=== PATIENT | male | born 2000 | race Caucasian/White ===

== ENCOUNTER 2021-10-12 23:38 | Emergency (ER) | payer OTHER, SELFPAY ==
[2021-10-12 23:44] VITALS: BP 141/61; PULSE 74; RESP 18; TEMP 36.5; O2SAT 100
[2021-10-13 00:02] LABS: Abs Immature Grans 0.05 10^3/uL (0.0-0.06); Absolute Basophil Count 0.06 10^3/uL (0.0-0.2); Absolute Eosinophil Count 0.08 10^3/uL (0.0-0.7); Absolute Lymphocyte Count 0.71 10^3/uL (1.2-3.4); Absolute Neutrophil Count 13.46 10^3/uL (1.2-6.7); Basophils % 0.4; Eosinophils % 0.5; HGB 16.3 g/dL (13.5-17.5); Immature Grans % 0.3; Lymphocytes % 4.6; MCH 29.5 pg (27.0-33.0); MPV 10.8 fL (8.0-11.0); Monocytes % 6.6; Neutrophils % 87.6; Nucleated RBC 0 %; Platelet Count 204 10^3/uL (130-400); RBC 5.52 10^6/uL (4.36-5.78); RDW 12.6 % (11.8-14.1); RDW-SD 39.9 fL; WBC 15.36 10^3/uL (4.4-10.8)
[2021-10-13 00:03] LABS: Absolute Monocyte Count 1.01 10^3/uL (0.1-0.8)
[2021-10-13] MEDS: Ondansetron 4 MG/2 ML VIAL IVP (00:06)
[2021-10-13] MEDS: Normal Saline 1,000 ML 1000 ML IV ×2 (00:06→00:47)
--- NOTE | 2021-10-13 00:08 | ED.GENADUL_ITS ---
Discharge Plan Disposition Patient Disposition: HOME Condition: Improving Discharge Details Clinical Impression: Vomiting ED Provider: Josh Wallace Discharge Instructions Instructions: Gastroenteritis (ED) Additional Instructions: Please stay hydrated attempt to use Gatorade or Pedialyte at home. Please return to the emergency department for persistent vomiting abdominal pain high fevers or other abnormal symptomatology. Medical Decision Making 21-year-old male presents with nausea vomiting upper abdominal discomfort/cramping after completing lacrosse practice and eating at [employer]. No current vomiting. Resting comfortably. Moist mucous membranes. Nontoxic nontachycardic. Abdomen soft nontender nondistended. Consider foodborne illness versus gastritis versus enteritis versus developing gastroenteritis versus less likely cholecystitis biliary colic or appendicitis. Fluid hydration basic labs antiemetics close reassessment. If patient continues to be stable without vomiting consider home with home care instructions and strict return precautions. 01: 07 patient resting comfortably no acute distress no further vomiting. Feeling better after fluids and meds. Leukocytosis likely reactive to vomiting/retching. Consider resolving enteritis versus foodborne illness. Given strict return precautions for persistent symptomatology fevers or worsening abdominal pain. Patient feeling better and requesting to go home. Family here to take him home. HPI General Date/Time Provider Initiated Documentation: 10/12/21 23:43 . HPI Narrative: 21-year-old male no past medical history presents with resolved nausea and vomiting after lacrosse practice and eating at [employer], upper abdominal stomach cramping multiple episodes of nonbloody nonbilious emesis, no diarrhea. No lower abdominal discomfort no testicular discomfort no urinary symptoms. General Stated Complaint: Nausea/Vomit/Diar MELISSA: 3 Review of Systems Narrative: Review of Systems Constitutional: negative Eyes: negative ENT: negative Cardiovascular: negative Respiratory: negative Gastrointestinal: Abdominal pain nausea vomiting : negative Musculoskeletal: negative Skin: negative Neurologic: negative Psych: negative PFSH All Active Problems (Updated 10/13/21 @ 01:08 by Josh Wallace MD) Vomiting (Acute) Social History Smoking/Tobacco Use Status: Never Smoking risk assessment performed?: Yes Alcohol Intake: current Drug use: Daily Substance use type: marijuana Do you feel safe at home: Yes Do you feel safe in your relationship?: Yes Exam Narrative Exam Narrative: Physical Examination General: alert, awake, cooperative, resting comfortably, no acute distress HEENT: normocephalic, atraumatic; PERRL, EOM intact, conjunctiva normal; no nasal discharge; moist mucous membranes, oral and pharyngeal mucosa normal, tolerating secretions Neck: supple, trachea midline; full ROM Chest: normal to inspection Respiratory: normal respiratory effort, speaking in full sentences, clear to auscultation, no wheezing, rales or rhonchi Cardiac: regular rate, regular rhythm, S1S2 intact, no murmurs rubs or gallops GI: abdomen soft, non-tender, non-distended; no palpable mass or hepatosplenomegaly Skin: no lesions, rashes or trauma appreciated Neuro: AAOx3, normal speech, moving all extremities Psych: Appropriate mood and affect Course Vital Signs Vital signs: Vital Signs Temperature 36.5 C 10/12/21 23:44 Pulse 74 10/12/21 23:44 Respiratory Rate 18 10/12/21 23:44 Blood Pressure 141/61 H 10/12/21 23:44 Pulse Oximetry 100 10/12/21 23:44 Temperature 36.5 C 10/12/21 23:44 Temperature Source Tympanic 10/12/21 23:44 Pulse 74 10/12/21 23:44 Respiratory Rate 18 10/12/21 23:44 Respiratory Effort 10/12/21 23:46 Blood Pressure 141/61 H 10/12/21 23:44 Blood Pressure Position Supine 10/12/21 23:44 Pulse Oximetry 100 10/12/21 23:44 Oxygen Delivery Method Room Air 10/12/21 23:44 Oxygen Flow Rate 0 10/12/21 23:44 Pain Level 8 10/12/21 23:44 Lab/Test Results Lab/Test Results: Laboratory Tests Range/Units 10/12/21 23:57 WBC (4.4-10.8) 10^3/uL 15.36 H RBC (4.36-5.78) 10^6/uL 5.52 Hgb (13.5-17.5) g/dL 16.3 Hct (40.0-50.0) % 48.0 MCV (80-95) fL 87.0 MCH (27.0-33.0) pg 29.5 MCHC (32.0-36.0) % 34.0 RDW (11.8-14.1) % 12.6 Plt Count (130-400) 10^3/uL 204 MPV (8.0-11.0) fL 10.8 Immature Gran % 0.3 Neutrophils % 87.6 Lymphocytes % 4.6 Monocytes % 6.6 Eosinophils % 0.5 Basophils % 0.4 Nucleated RBC % % 0 Absolute Neutrophils (1.2-6.7) 10^3/uL 13.46 H Absolute Lymphocytes (1.2-3.4) 10^3/uL 0.71 L Absolute Monocytes (0.1-0.8) 10^3/uL 1.01 H Absolute Eosinophils (0.0-0.7) 10^3/uL 0.08 Absolute Basophils (0.0-0.2) 10^3/uL 0.06 PAWSS Have you Been Recently Intoxicated or Drunk Within the Last 30 days?: No Have you Ever Experienced Previous Episodes of Alcohol Withdrawal?: No Have you ever Experienced Withdrawal Seizures?: No Have you ever Experienced Delirium Tremens(DT)s?: No Have you ever undergone Alcohol Rehabilitation Treatment (i.e, inpt ot outpatient treatment programs)?: No Have you ever Experienced Blackouts?: No Have you ever Combined Alcohol with other Downers within the last 90 days?: No Have you ever Combined Alcohol with any other Substance of Abuse during the last 90 days?: No Positive Blood Alcohol level on Presentation? [PCS.BAL]: No Evidence of Increased Autonomic Activity (i.e. HR>120, tremor, sweating, agitation, nausea)?: No Result: 0
[2021-10-13 00:16] LABS: ALT 27 U/L (16-63); AST 17 U/L (15-37); Albumin 4.9 g/dL (3.4-5.0); Alkaline Phosphatase 101 U/L (46-116); BUN 16 mg/dL (7-18); Bilirubin, Total 1.4 mg/dL (0.2-1.0); CREATININE 1.1 mg/dL (0.70-1.30); Calcium 9.1 mg/dL (8.5-10.1); Chloride 102 mmol/L (98-107); Glucose 111 mg/dL (74-106); Potassium 3.4 mmol/L (3.5-5.1); Sodium 140 mmol/L (136-145); Total Protein 7.8 g/dL (6.4-8.2)
[2021-10-13] MEDS: Famotidine 20 MG/2 ML VIAL IVP (00:47)
[2021-10-13] MEDS: Metoclopramide 10 MG/2 ML VIAL IVP (00:47)
[2021-10-13 00:50] VITALS: BP 140/76; PULSE 74; RESP 18; O2SAT 100
[2021-10-13] MEDS: Ondansetron O.D.T. 4 MG TABEF, 3 TABS/BTL 12 MG (01:24)
== END 2021-10-13 01:25 | disposition home or self-care (01) ==
LOC: ER 10-13 01:26
PROVIDERS: Emergency Provider Emergency Medicine
DX: R11.2 Nausea with vomiting, unspecified (principal)
CPT/HCPCS: 80053; 96361; 96374; 96375; 99284; 85025; 99283; J2405; J2765